=== PATIENT | female | born 1970 | race Caucasian/White ===

== ENCOUNTER 2019-08-19 19:34 | Emergency (ER) | payer MEDICAID ==
[~2019-08-19] VITALS: Ht 170.2 cm; Wt 122.0 kg
[~2019-08-19 19:34] MED LIST: GOLYS PO
[2019-08-19 19:54] VITALS: BP 146/83
== END 2019-08-19 21:18 | disposition home or self-care (01) ==
LOC: ER 19:34
DX: H53.9 Unspecified visual disturbance (principal); E78.00 Pure hypercholesterolemia, unspecified; K21.9 Gastro-esophageal reflux disease without esophagitis; M19.90 Unspecified osteoarthritis, unspecified site; F10.99 Alcohol use, unspecified with unspecified alcohol-induced disorder; Z98.51 Tubal ligation status; Z98.890 Other specified postprocedural states; Z88.1 Allergy status to other antibiotic agents; Z88.8 Allergy status to other drugs, medicaments and biological substances; Z79.899 Other long term (current) drug therapy; Y90.9 Presence of alcohol in blood, level not specified
CPT/HCPCS: 99281

== ENCOUNTER 2022-03-27 15:39 | Emergency (ER) | payer BC, MEDICAID ==
[~2022-03-27] VITALS: Ht 170.2 cm; Wt 97.3 kg
[2022-03-27 15:50] VITALS: BP 177/76
== END 2022-03-27 17:31 | disposition home or self-care (01) ==
LOC: ER 15:40
DX: H53.8 Other visual disturbances (principal); E78.00 Pure hypercholesterolemia, unspecified; K21.9 Gastro-esophageal reflux disease without esophagitis; M19.90 Unspecified osteoarthritis, unspecified site; Z88.1 Allergy status to other antibiotic agents; Z88.6 Allergy status to analgesic agent; Z88.8 Allergy status to other drugs, medicaments and biological substances; Z91.041 Radiographic dye allergy status; Z98.51 Tubal ligation status
CPT/HCPCS: 99281

== ENCOUNTER 2023-01-07 09:24 | Emergency (ER) | payer BC ==
[~2023-01-07] VITALS: Ht 170.2 cm; Wt 97.0 kg
[2023-01-07 10:05] LABS: ALANINE AMINOTRANSFERASE 20 U/L (12-78); ALBUMIN 3.6 G/DL (3.4-5.0); ALBUMIN/GLOBULIN RATIO 1.2 (1.1-1.5); ALKALINE PHOSPHATASE 76 IU/L (46-116); ANION GAP 5 (8-16); ASPARTATE AMINO TRANSFERASE 13 U/L (10-37); BILIRUBIN,TOTAL 0.2 MG/DL (0.1-1.0); BLOOD UREA NITROGEN 14 MG/DL (7-18); BUN/CREATININE RATIO 18.7 (10.0-20.0); CALCIUM 9.4 MG/DL (8.5-10.1); CHLORIDE 108 MMOL/L (99-107); CREATININE 0.75 MG/DL (0.40-0.90); GLUCOSE 119 MG/DL (70-104); POTASSIUM 4.4 MMOL/L (3.5-5.1); SODIUM 144 MMOL/L (135-145); TOTAL CARBON DIOXIDE 30.7 MMOL/L (24-32); TOTAL PROTEIN 6.7 G/DL (6.4-8.2); eGFR 81 ML/MIN
[2023-01-07 10:11] LABS: BASOPHILS % (AUTO) 0.7 % (0-1); EOSINOPHILS # (AUTO) 0.2 X10'3 (0-0.9); HEMATOCRIT 41.5 % (35.0-45.0); HEMOGLOBIN 13.8 g/dl (12.0-16.0); LYMPHOCYTES # (AUTO) 2.8 X10'3 (1.1-4.8); LYMPHOCYTES % (AUTO) 42.9 % (21-51); MEAN CORPUSCULAR HEMOGLOBIN 30.9 PG (27.0-31.0); MEAN CORPUSCULAR HGB CONC 33.3 g/dL (33.0-36.5); MEAN PLATELET VOLUME 8.1 FL (7.4-10.4); MONOCYTES # (AUTO) 0.6 X10'3 (0-0.9); MONOCYTES % (AUTO) 9.7 % (2-12); NEUTROPHILS # (AUTO) 2.9 X10'3 (1.8-7.7); NEUTROPHILS % (AUTO) 43.7 % (42-75); PLATELET COUNT 271 X10'3 (140-440); RED BLOOD COUNT 4.47 X10'6 (4.20-5.60); RED CELL DISTRIBUTION WIDTH 13.1 % (11.5-14.5); WHITE BLOOD COUNT 6.6 X10'3 (4.5-11.0)
[2023-01-07 10:13] LABS: MAGNESIUM 2.1 MG/DL (1.5-2.4)
[2023-01-07 11:11] VITALS: BP 122/71
== END 2023-01-07 11:13 | disposition home or self-care (01) ==
LOC: ER 09:24
DX: I49.8 Other specified cardiac arrhythmias (principal); E78.00 Pure hypercholesterolemia, unspecified; K21.9 Gastro-esophageal reflux disease without esophagitis; Z88.8 Allergy status to other drugs, medicaments and biological substances; Z79.899 Other long term (current) drug therapy; Z88.6 Allergy status to analgesic agent
CPT/HCPCS: 36415; 80053; 83735; 83880; 84484; 85025; 93005; 99283; 99284

== ENCOUNTER 2023-04-06 18:43 | Emergency (ER) | payer BC ==
[~2023-04-06] VITALS: Ht 170.2 cm; Wt 101.0 kg
[2023-04-06 18:52] VITALS: TEMP 98.8
--- NOTE | 2023-04-06 18:57 | NUR ---
PT TESTED POSITIVE FOR [id number] AND [id number] GENES THAT CREATE ISSUES WITH PROCESSING MEDICATIONS
[2023-04-06] MEDS ORDERED: DEXAMETHASONE 6 MG TABLET PO SCH (20:00)
[2023-04-06] MEDS ORDERED: clindamycin 150mg capsule PO ONE (20:00)
[2023-04-06] MEDS ORDERED: acetaminophen 325mg tablet PO ONE (20:05)
[2023-04-06] MEDS ORDERED: CLIN-97 PO (20:08)
[2023-04-06 20:15] VITALS: BP 126/69; PULSE 63; RESP 16; O2SAT 97
== END 2023-04-06 20:16 | disposition home or self-care (01) ==
LOC: ER 18:43
DX: K04.7 Periapical abscess without sinus (principal); E78.00 Pure hypercholesterolemia, unspecified; K21.9 Gastro-esophageal reflux disease without esophagitis; M19.90 Unspecified osteoarthritis, unspecified site; Z88.6 Allergy status to analgesic agent; Z88.8 Allergy status to other drugs, medicaments and biological substances; Z91.041 Radiographic dye allergy status; Z88.1 Allergy status to other antibiotic agents; Z79.2 Long term (current) use of antibiotics; Z98.51 Tubal ligation status
CPT/HCPCS: 99284; J8540

== ENCOUNTER 2023-04-09 14:23 | Emergency (ER) | payer BC ==
[~2023-04-09] VITALS: Ht 170.2 cm; Wt 105.8 kg
[~2023-04-09 14:23] MED LIST changes: +CLIN-97 PO
[2023-04-09 14:26] VITALS: BP 167/63; PULSE 67; RESP 16; TEMP 97.8; O2SAT 100
[2023-04-09 15:59] LABS: BASOPHILS % (AUTO) 0.3 % (0-1); EOSINOPHILS # (AUTO) 0.3 X10'3 (0-0.9); EOSINOPHILS % (AUTO) 3.1 % (0-6); HEMATOCRIT 40.8 % (35.0-45.0); HEMOGLOBIN 13.6 g/dl (12.0-16.0); LYMPHOCYTES # (AUTO) 2.9 X10'3 (1.1-4.8); LYMPHOCYTES % (AUTO) 28.8 % (21-51); MEAN CORPUSCULAR HEMOGLOBIN 30.6 PG (27.0-31.0); MEAN CORPUSCULAR HGB CONC 33.3 g/dL (33.0-36.5); MEAN CORPUSCULAR VOLUME 91.8 FL (78-98); MEAN PLATELET VOLUME 7.8 FL (7.4-10.4); MONOCYTES # (AUTO) 1.2 X10'3 (0-0.9); NEUTROPHILS # (AUTO) 5.7 X10'3 (1.8-7.7); NEUTROPHILS % (AUTO) 55.8 % (42-75); PLATELET COUNT 269 X10'3 (140-440); RED BLOOD COUNT 4.44 X10'6 (4.20-5.60); RED CELL DISTRIBUTION WIDTH 12.9 % (11.5-14.5); WHITE BLOOD COUNT 10.2 X10'3 (4.5-11.0)
[2023-04-09 16:17] LABS: ALANINE AMINOTRANSFERASE 34 U/L (12-78); ALBUMIN 3.6 G/DL (3.4-5.0); ALBUMIN/GLOBULIN RATIO 1.2 (1.1-1.5); ALKALINE PHOSPHATASE 67 IU/L (46-116); ANION GAP 7 (8-16); ASPARTATE AMINO TRANSFERASE 18 U/L (10-37); BILIRUBIN,TOTAL 0.2 MG/DL (0.1-1.0); BLOOD UREA NITROGEN 12 MG/DL (7-18); BUN/CREATININE RATIO 16.2 (10.0-20.0); CALCIUM 9.6 MG/DL (8.5-10.1); CHLORIDE 105 MMOL/L (99-107); CREATININE 0.74 MG/DL (0.40-0.90); GLUCOSE 93 MG/DL (70-104); POTASSIUM 4.4 MMOL/L (3.5-5.1); SODIUM 143 MMOL/L (135-145); TOTAL CARBON DIOXIDE 31.5 MMOL/L (24-32); TOTAL PROTEIN 6.7 G/DL (6.4-8.2); eCRCL 85 ML/MIN; eGFR 82 ML/MIN
== END 2023-04-09 16:43 | disposition home or self-care (01) ==
LOC: ER 14:23
DX: K00.6 Disturbances in tooth eruption (principal); K04.7 Periapical abscess without sinus; E78.00 Pure hypercholesterolemia, unspecified; K21.9 Gastro-esophageal reflux disease without esophagitis; Z88.8 Allergy status to other drugs, medicaments and biological substances; Z88.6 Allergy status to analgesic agent; Z91.041 Radiographic dye allergy status; Z88.1 Allergy status to other antibiotic agents; Z98.51 Tubal ligation status
CPT/HCPCS: 36415; 80053; 85025; 99283

== ENCOUNTER 2023-07-25 10:19 | Emergency (ER) | payer BC ==
[~2023-07-25] VITALS: Ht 170.2 cm; Wt 109.0 kg
[2023-07-25 10:32] VITALS: O2SAT 100
[2023-07-25] MEDS ORDERED: dexamethasone sod phosphate 10mg/ml inj IM STA (11:53)
[2023-07-25] MEDS ORDERED: diazepam inj 5 MG/ML inj. IM ONE (11:55)
[2023-07-25] MEDS ORDERED: CYCL-1 PO (11:56)
[2023-07-25] MEDS ORDERED: PRED20TA PO (11:56)
[2023-07-25 12:24] VITALS: BP 152/69; PULSE 96; RESP 20; TEMP 98.1
== END 2023-07-25 12:40 | disposition home or self-care (01) ==
LOC: ER 10:19
DX: S39.012A Strain of muscle, fascia and tendon of lower back, initial encounter (principal); M54.42 Lumbago with sciatica, left side; E78.00 Pure hypercholesterolemia, unspecified; M19.90 Unspecified osteoarthritis, unspecified site; Z87.51 Personal history of pre-term labor; Z98.890 Other specified postprocedural states; Z88.8 Allergy status to other drugs, medicaments and biological substances; Z88.6 Allergy status to analgesic agent; Z79.899 Other long term (current) drug therapy; Z79.2 Long term (current) use of antibiotics; X58.XXXA Exposure to other specified factors, initial encounter; Y93.89 Activity, other specified; Y92.89 Other specified places as the place of occurrence of the external cause; Y99.8 Other external cause status
CPT/HCPCS: 96372; 99284; J1100; J3360

== ENCOUNTER 2023-08-20 16:51 | Emergency (ER) | payer BC ==
[~2023-08-20] VITALS: Ht 170.2 cm; Wt 115.0 kg
[~2023-08-20 16:51] MED LIST changes: +CYCL-1 PO; +PRED20TA PO
[2023-08-20 17:24] VITALS: BP 155/92; PULSE 82; RESP 18; TEMP 98.1; O2SAT 98
== END 2023-08-20 18:01 | disposition home or self-care (01) ==
LOC: ER 16:51
DX: J02.9 Acute pharyngitis, unspecified (principal); T50.8X5A Adverse effect of diagnostic agents, initial encounter; E78.00 Pure hypercholesterolemia, unspecified; M19.90 Unspecified osteoarthritis, unspecified site; Z98.51 Tubal ligation status; Z98.890 Other specified postprocedural states; Z72.89 Other problems related to lifestyle; Z91.041 Radiographic dye allergy status; Z88.5 Allergy status to narcotic agent; Z88.1 Allergy status to other antibiotic agents; Z79.2 Long term (current) use of antibiotics; Z79.899 Other long term (current) drug therapy; Y92.89 Other specified places as the place of occurrence of the external cause
CPT/HCPCS: 99283

== ENCOUNTER → 2024-03-01 | Emergency (ER) | payer BC ==
[~2024-03-01] VITALS: Ht 170.2 cm; Wt 133.0 kg
[~2024-03-01] MED LIST changes: -PRED20TA PO; +iohexol 350MG/ML 100ml bottle IV ONE
[2024-03-01 17:11] LABS: ALBUMIN 3.4 G/DL (3.4-5.0); ANION GAP 3 (8-16); BASOPHILS % (AUTO) 0.3 % (0-1); BLOOD UREA NITROGEN 13 MG/DL (7-18); BUN/CREATININE RATIO 16.9 (10.0-20.0); CALCIUM 9.3 MG/DL (8.5-10.1); CHLORIDE 107 MMOL/L (99-107); CREATININE 0.77 MG/DL (0.40-0.90); EOSINOPHILS # (AUTO) 0.3 X10'3 (0-0.9); GLUCOSE 101 MG/DL (70-104); HEMATOCRIT 40.1 % (35.0-45.0); HEMOGLOBIN 13.1 g/dl (12.0-16.0); LYMPHOCYTES # (AUTO) 2.3 X10'3 (1.1-4.8); LYMPHOCYTES % (AUTO) 22.4 % (21-51); MEAN CORPUSCULAR HEMOGLOBIN 29.2 PG (27.0-31.0); MEAN CORPUSCULAR HGB CONC 32.8 g/dL (33.0-36.5); MEAN CORPUSCULAR VOLUME 89.1 FL (78-98); MEAN PLATELET VOLUME 8.2 FL (7.4-10.4); MONOCYTES # (AUTO) 1.3 X10'3 (0-0.9); MONOCYTES % (AUTO) 12.7 % (2-12); NEUTROPHILS # (AUTO) 6.4 X10'3 (1.8-7.7); NEUTROPHILS % (AUTO) 61.6 % (42-75); PLATELET COUNT 244 X10'3 (140-440); POTASSIUM 4.6 MMOL/L (3.5-5.1); RED CELL DISTRIBUTION WIDTH 13.7 % (11.5-14.5); SODIUM 141 MMOL/L (135-145); TOTAL CARBON DIOXIDE 30.9 MMOL/L (24-32); WHITE BLOOD COUNT 10.3 X10'3 (4.5-11.0); eCRCL 80 ML/MIN; eGFR 78 ML/MIN
[2024-03-01] MEDS: baclofen 10mg tablet PO PRN (18:49)
[2024-03-01 18:57] VITALS: BP 154/80; PULSE 79; RESP 18; TEMP 98; O2SAT 99
== END | disposition home or self-care (01) ==
LOC: ER 15:21
DX: R51.9 Headache, unspecified (principal); M54.2 Cervicalgia; I67.1 Cerebral aneurysm, nonruptured; F17.200 Nicotine dependence, unspecified, uncomplicated; E78.00 Pure hypercholesterolemia, unspecified; M19.90 Unspecified osteoarthritis, unspecified site; K21.9 Gastro-esophageal reflux disease without esophagitis; Z98.890 Other specified postprocedural states; Z98.51 Tubal ligation status; Z88.1 Allergy status to other antibiotic agents; Z88.8 Allergy status to other drugs, medicaments and biological substances; Z79.2 Long term (current) use of antibiotics; Z79.899 Other long term (current) drug therapy
CPT/HCPCS: 36415; 70460; 70496; 70498; 80048; 85025; 99285; Q9967; A6250